=== PATIENT | male | born 2000 | race Caucasian/White ===

== ENCOUNTER 2024-02-12 09:20 | Emergency (ER) | payer SELFPAY ==
[~2024-02-12] VITALS: Ht 185.4 cm; Wt 102.3 kg
[~2024-02-12 09:20] MED LIST: NORCO 325 MG-51 TAB PO
[2024-02-12 09:25] VITALS: TEMP 97.8
[2024-02-12] MEDS ORDERED: LORazepam 2 MG/ML 1 ML VIAL IV ONE (09:45)
[2024-02-12 10:03] LABS: BASO # 0.1 K/mm3 (0.0-0.2); BASO % 0.5 % (0.0-2.0); EOS # 0.1 K/mm3 (0.0-0.7); EOS % 0.7 % (0.0-4.0); GRAN # 5.8 K/mm3 (1.4-6.5); GRAN % 52.9 % (42.2-75.2); HEMATOCRIT 42.9 % (42.0-52.0); LYMPH # 4.2 K/mm3 (1.2-3.4); LYMPH % 37.8 % (20.0-51.0); MEAN CELL VOLUME 82 fl (80.0-100.0); MEAN CORPUSCULAR HEMOGLOBIN 29 pg (27-31); MEAN CORPUSCULAR HGB CONC 35 g/dl (33.0-37.0); MEAN PLATELET VOLUME 12.7 fl (7.4-10.4); MONO # 0.8 K/mm3 (0.1-0.6); MONO % 7.7 % (1.7-9.3); PLATELET COUNT 278 K/mm3 (130-400); RED BLOOD COUNT 5.22 M/mm3 (4.20-5.60); REDCELL DISTRIBUTION WIDTH-CV 12.1 % (11.5-14.5)
[2024-02-12 10:04] LABS: ALANINE AMINOTRANSFERASE 22 U/L (0-55); ALBUMIN 4.7 g/dL (3.5-5.0); ALKALINE PHOSPHATASE 100 U/L (40-150); ANION GAP 13 mmol/L (7-16); AST,SGOT 16 U/L (5-34); BLOOD UREA NITROGEN 15 mg/dL (9-21); CALCIUM 10.5 mg/dL (8.4-10.2); CHLORIDE 105 mEq/L (98-107); GLUCOSE 122 mg/dL (70-99); POTASSIUM 3.7 mEq/L (3.5-4.5); SODIUM 138 mEq/L (136-145)
[2024-02-12 10:09] LABS: TROPONIN-I < 0.010 ng/mL (0.00-0.033)
[2024-02-12 10:20] LABS: BILIRUBIN,TOTAL 0.5 mg/dL (0.2-1.2)
[2024-02-12 11:46] VITALS: BP 101/77; PULSE 75
== END 2024-02-12 11:55 | disposition home or self-care (01) ==
LOC: COL.ER 09:20
PROVIDERS: Family Medicine
DX: R07.89 Other chest pain (principal); F17.210 Nicotine dependence, cigarettes, uncomplicated; F17.290 Nicotine dependence, other tobacco product, uncomplicated
CPT/HCPCS: J2060

== ENCOUNTER 2024-02-13 09:30 | Emergency (ER) | payer SELFPAY ==
[~2024-02-13] VITALS: Ht 185.4 cm; Wt 102.3 kg
[2024-02-13 09:34] VITALS: TEMP 97.5
[2024-02-13 11:48] VITALS: BP 111/80; PULSE 59
== END 2024-02-13 11:48 | disposition home or self-care (01) ==
LOC: COL.ER 09:30
DX: F41.9 Anxiety disorder, unspecified (principal); R07.89 Other chest pain; F17.200 Nicotine dependence, unspecified, uncomplicated